=== PATIENT | male | born 1975 | race American Indian/Alaskan Native ===

== ENCOUNTER 2017-06-04 08:26 | Emergency (ER) | payer OTHER ==
[~2017-06-04] VITALS: Ht 170.2 cm; Wt 72.6 kg
[~2017-06-04 08:26] MED LIST: ADDERALL 20 MG20 MG PO; CYMBALTA30 MG PO; OXYCONTIN20 MG PO
[2017-06-04] MEDS ORDERED: ADVIL200 M1 PO (08:44)
== END 2017-06-04 09:23 | disposition home or self-care (01) ==
LOC: ED 08:26
DX: S00.12XA Contusion of left eyelid and periocular area, initial encounter (principal); H57.8 Other specified disorders of eye and adnexa; F32.9 Major depressive disorder, single episode, unspecified; F17.200 Nicotine dependence, unspecified, uncomplicated; Y08.89XA Assault by other specified means, initial encounter
CPT/HCPCS: 99282

== ENCOUNTER 2018-06-24 | Emergency (ER) | payer OTHER ==
[~2018-06-24] VITALS: Ht 170.2 cm; Wt 77.1 kg
[~2018-06-24] MED LIST changes: +ADVIL200 M1 PO
[2018-06-24] MEDS ORDERED: BACTRIM DS TAB1 EACH PO (00:15)
[2018-06-24] MEDS ORDERED: CEPHALEXIN500 MG PO (00:38)
== END 2018-06-24 00:48 | disposition home or self-care (01) ==
LOC: ED
PROC: 0H97XZZ Drainage of Abdomen Skin, External Approach (ICD-10-PCS; principal; 2018-06-24)
DX: L02.211 Cutaneous abscess of abdominal wall (principal); Z79.899 Other long term (current) drug therapy
CPT/HCPCS: 10060; 99282

== ENCOUNTER 2020-04-12 18:04 | Emergency (ER) | payer OTHER ==
[~2020-04-12] VITALS: Ht 170.2 cm; Wt 77.1 kg
[~2020-04-12 18:04] MED LIST changes: +BACTRIM DS TAB1 EACH PO; +CEPHALEXIN500 MG PO
== END 2020-04-12 20:21 | disposition home or self-care (01) ==
LOC: ED 18:04
PROC: 0HQ1XZZ Repair Face Skin, External Approach (ICD-10-PCS; principal; 2020-04-12)
DX: S01.112A Laceration without foreign body of left eyelid and periocular area, initial encounter (principal); S40.011A Contusion of right shoulder, initial encounter; S00.83XA Contusion of other part of head, initial encounter; F17.200 Nicotine dependence, unspecified, uncomplicated; Y04.2XXA Assault by strike against or bumped into by another person, initial encounter
CPT/HCPCS: 12011; 70450; 72040; 73030; 99284-25